=== PATIENT | male | born 1985 | race Caucasian/White ===

== ENCOUNTER 2023-03-12 11:30 | Emergency (ER) | payer OTHER ==
[~2023-03-12] VITALS: Ht 180.3 cm; Wt 82.0 kg
[2023-03-12 11:32] VITALS: O2SAT 100
[2023-03-12] MEDS ORDERED: TETANUS, DIPHTHERIA, PERTUSSIS VAC/PF 0.5ML (>10YR OLD) IM ONE (12:00)
[2023-03-12] MEDS ORDERED: BACITRACIN ZINC OINT UDPKT TOP ONE ×2 (12:00→17:45)
[2023-03-12] MEDS ORDERED: LIDOCAINE HCL/EPINEPHRINE 1%-EPI 1:100,000 20 ML VIAL INFIL ONE (12:00)
[2023-03-12] MEDS ORDERED: CEFAZOLIN 1000MG PREMIX 50 ML IV ONE (13:45)
[2023-03-12] MEDS ORDERED: AMPICILLIN SOD/SULBACTAM NA 3 G in SODIUM CHLORIDE 0.9% 100 ML IV STA (14:01)
[2023-03-12 14:10] LABS: BASOPHILS % 0.3 % (0.0-2.0); EOSINOPHILS % 0.2 % (0.0-5.0); HEMATOCRIT. 41.4 % (42.0-52.0); HEMOGLOBIN. 13.7 g/dL (14.0-18.0); LYMPHOCYTES % 14.7 % (20.0-50.0); MEAN CORPUSCULAR HEMOGLOBIN 30.9 pg (28.0-32.0); MEAN CORPUSCULAR HGB CONC 33.2 g/dL (31.0-37.0); MEAN CORPUSCULAR VOLUME 93.2 fL (80.0-94.0); MEAN PLATELET VOLUME 10.9 fl (7.4-10.4); MONOCYTES % 5.9 % (2.0-8.0); NEUTROPHILS % 78.9 % (40.0-76.0); PLATELET 151 x1000/uL (130-400); RED BLOOD CELL COUNT 4.44 mill/uL (4.7-6.1); RED CELL DISTRIBUTION WIDTH 13.4 % (11.6-14.6); WHITE BLOOD COUNT 13.3 x1000/uL (4.5-11.0)
[2023-03-12 14:29] LABS: CHLORIDE 108 mEq/L (98-107); INDEX HEMOLYSI 1 (1-3); INDEX ICTERIC 1 (1-4); INDEX LIPEMIC 1 (1-3); POTASSIUM 3.6 mEq/L (3.5-5.1); SODIUM 138 mEq/L (136-145)
[2023-03-12] MEDS ORDERED: MORPHINE SULFATE 2 MG/ML CPJ (NOT FOR IM USE) IV ONE (14:30)
[2023-03-12 14:39] LABS: ALANINE AMINOTRANSFERASE 72 IU/L (13-61); ASPARTATE AMINOTRANSFERASE 40 IU/L (15-37); BILIRUBIN TOTAL 0.7 mg/dL (0.1-1.0); CARBON DIOXIDE 24 mEq/L (21-32); CREATININE 0.8 mg/dL (0.6-1.3); GLUCOSE 89 mg/dL (70-105); PROTEIN TOTAL 7.3 g/dL (6.0-8.3); UREA NITROGEN BLOOD 22 mg/dL (7-21)
[2023-03-12] MEDS ORDERED: AMOX1TAB16 MT (17:41)
[2023-03-12] MEDS ORDERED: NAPR375T5 MT (17:57)
[2023-03-12 18:15] VITALS: BP 128/77; PULSE 51; RESP 19; TEMP 98.5
== END 2023-03-12 18:32 | disposition home or self-care (01) ==
LOC: ER 11:30
DX: S41.111A Laceration without foreign body of right upper arm, initial encounter (principal); W27.8XXA Contact with other nonpowered hand tool, initial encounter; Y93.89 Activity, other specified; Y92.89 Other specified places as the place of occurrence of the external cause; Y99.8 Other external cause status
CPT/HCPCS: 80053; 85025; 36415; 73060; 12006; 96365; 96375; 99284; J0295; J0690; J3490; J2270; J7050; Z7610 ×4; A4565